=== PATIENT | male | born 1950 | race Caucasian/White ===

== ENCOUNTER → 2019-11-19 | Outpatient (CLI) | payer MEDICARE, OTHER ==
[~2019-11-19] MED LIST: GADOBUTROL 10 MMOL/10 ML (GADAVIST) VIAL IV ONE
[2019-11-19 13:05] LABS: CREATININE SERUM 0.81 MG/DL (0.60-1.30); GFR ESTIMATED > 60
[2019-11-19 13:06] LABS: BUN/CREATININE RATIO 6
--- NOTE | 2019-11-19 13:48 | Diagnostic Imaging Report ---
PROCEDURE: MR imaging of the brain with and without contrast. TECHNIQUE: Multiplanar, multisequence MR imaging of the brain was performed with and without contrast. INDICATION: Loss of taste. COMPARISON: No prior studies are available for comparison. FINDINGS: The ventricles and sulci are appropriate for the patient's age. Mild periventricular white matter changes are noted, likely on the basis of chronic microvascular ischemia. No diffusion restriction is seen to suggest acute ischemia. The normal expected flow-voids within the carotid siphons are noted. No acute intra-axial or extra-axial hemorrhage is detected. No abnormal enhancement is identified following contrast administration. Corpus callosum is unremarkable. The sella and parasellar structures are unremarkable. IMPRESSION: Essentially unremarkable pre and post contrast MRI of the brain apart from mild periventricular white matter changes. No enhancing mass or acute intracranial abnormality is detected. Dictated by: Dictated on workstation # [id number]
== END ==
LOC: RAD 12:15
PROVIDERS: ATTEND Otolaryngology Otolaryngology/Facial Plastic Surgery
DX: R43.9 Unspecified disturbances of smell and taste (principal)
CPT/HCPCS: 36415; 70553; 82565; 84520